=== PATIENT | male | born 1975 | race Caucasian/White ===

== ENCOUNTER 2024-07-17 17:36 | Emergency (ER) | payer OTHER ==
[2024-07-17] MEDS: Sodium Chloride 0.9% 1,000 ML IV SCH (18:11)
[2024-07-17] MEDS: diphenhydrAMINE 50 MG/ML SDV IVPUSH ONE (18:11)
[2024-07-17] MEDS: methylPREDNISolone Sodium Succinate 125 MG/2 ML SDV IVPUSH ONE (18:13)
[2024-07-17] MEDS: Famotidine 20 MG/2 ML SDV IVPUSH ONE (18:13)
== END 2024-07-17 19:27 | disposition home or self-care (01) ==
LOC: JD.ED 17:36
DX: T63.481A Toxic effect of venom of other arthropod, accidental (unintentional), initial encounter (principal); I10 Essential (primary) hypertension; E78.00 Pure hypercholesterolemia, unspecified; E11.9 Type 2 diabetes mellitus without complications; F17.210 Nicotine dependence, cigarettes, uncomplicated; Z91.030 Bee allergy status; Z91.041 Radiographic dye allergy status; Z79.899 Other long term (current) drug therapy; W57.XXXA Bitten or stung by nonvenomous insect and other nonvenomous arthropods, initial encounter
CPT/HCPCS: 96374; 96375; 99283; J1200; J2919; J3490; J7030